=== PATIENT | male | born 1960 | race Caucasian/White ===

== ENCOUNTER 2016-05-11 12:35 | Emergency (ER) | payer MEDICARE ==
[~2016-05-11 12:35] MED LIST: ASPIR 8181 MG PO; COZAAR100 MG PO; MULTI-DAY VITA1 EACH PO; PROTONIX40 MG PO; SAW PALMETTO160 MG PO
[2016-05-11 13:42] LABS: HEMOGLOBIN 13.3 gm/dl (14.0-17.5); RED BLOOD COUNT 4.52 M/UL (4.20-5.50); WHITE BLOOD COUNT 8.9 K/UL (4.5-11.0)
[2016-05-11 14:02] LABS: BUN/CREATININE RATIO 10 (0-10)
== END 2016-05-11 17:05 | disposition home or self-care (01) ==
LOC: ER1 12:35
PROVIDERS: Emergency Medicine
DX: R07.9 Chest pain, unspecified (principal); I10 Essential (primary) hypertension
CPT/HCPCS: 36415; 71010; 80053; 82550; 82553; 83874; 83880; 84484; 85025; 85379; 93005; 99285

== ENCOUNTER → 2016-07-22 | Outpatient (CLI) | payer MEDICARE | LOC: HEART 5 13:00 | DX: R07.9 Chest pain, unspecified (principal); R00.1 Bradycardia, unspecified ==